=== PATIENT | female | born 1955 | race Caucasian/White ===

== ENCOUNTER 2020-06-09 20:54 | Emergency (ER) | payer MEDICARE ==
[2020-06-09] MEDS ORDERED: AMIODARONE 50 MG/ML 3 ML VIAL IV ONE ×2 (20:55)
[2020-06-09] MEDS ORDERED: DEXTROSE 5% IN WATER 50 ML BAG ONE (20:55)
[2020-06-09] MEDS ORDERED: DEXTROSE 5% IN WATER 100 ML BAG IV ONE (20:55)
[2020-06-09] MEDS ORDERED: ATROPINE SULFATE 0.1 MG/ML 10ML SYRINGE ONE (20:55)
[2020-06-09] MEDS ORDERED: SODIUM BICARB 8.4% 50 ML SYR (1 MEQ/ML) ONE (20:55)
[2020-06-09] MEDS ORDERED: MAGNESIUM SULFATE SYG 4.06 MEQ/ML SYRINGE ONE (20:55)
[2020-06-09] MEDS ORDERED: EPINEPHrine 10 ML SYRINGE (0.1 MG/ML) ONE (20:55)
[2020-06-09] MEDS ORDERED: CALCIUM CHLORIDE 100 MG/ML 10 ML SYRINGE ONE (20:55)
[2020-06-09 21:09] LABS: Anisocytosis Slight; HCT 24.9 % (34.0-46.0); Hypochromasia Marked; MCH 21.2 pg (25.0-35.0); MCHC 25.2 g/dL (31.0-37.0); MCV 84.2 fL (80.0-100.0); Mean Platelet Volume 9.2; Microcytosis Slight; Platelet Count 192 k/uL (150-450); RBC 2.96 m/uL (3.80-5.40); RDW 18.6 % (11.5-15.5); WBC 12.5 k/uL (3.8-10.6)
[2020-06-09] MEDS ORDERED: NOREPINEPHRINE 4 MG in SODIUM CHLORIDE 0.9% 250 ML IV ONE (21:21)
[2020-06-09 21:27] LABS: Glucose,Whole Blood 181 mg/dL (75-99)
[2020-06-09 21:27] LABS: HGB 6.3 gm/dL (11.4-16.0)
[2020-06-09 21:33] LABS: INR 1.1 (<1.2); Partial Thromboplastin Time 37.8 sec (22.0-30.0); Prothrombin Time 11.4 sec (9.0-12.0)
[2020-06-09 21:37] LABS: D-Dimer 26.14 mg/L FEU (<0.60)
--- NOTE | 2020-06-09 21:42 | ED ---
General Adult HPI - General Chief complaint: Cardiac Arrest/CPR Stated complaint: Cardiac Arrest Time Seen by Provider: 06/09/20 21:20 Source: EMS, RN notes reviewed, old records reviewed Mode of arrival: EMS - History of Present Illness Initial comments: 64-year-old female presented has witnessed cardiac arrest. Initial rhythm according to paramedics was ventricular fibrillation. She was intubated by EMS, given amiodarone, defibrillation, and transported to the emergency department. She went into a PEA rhythm during transport, was given multiple doses of epinephrine. At the time of presentation to the emergency department she was in a persistent PEA rhythm. Resuscitative efforts were continued. Please see grey goods tester records for exact details. - Related Data Allergies Allergy/AdvReac Type Severity Reaction Status Date / Time No Known Allergies Allergy Verified 06/09/20 21:19 Review of Systems ROS Statement: Those systems with pertinent positive or pertinent negative responses have been documented in the HPI. ROS Other: All systems not noted in ROS Statement are negative. Past Medical History Past Medical History: Unable to Obtain History of Any Multi-Drug Resistant Organisms: None Reported Past Surgical History: Unable to Obtain Past Psychological History: Unable to Obtain Smoking Status: Unknown if ever smoked Past Alcohol Use History: Unable to Obtain Past Drug Use History: Unable to Obtain General Exam Limitations: altered mental status General appearance: other (Pale,) Head exam: Present: atraumatic, normocephalic Eye exam: Present: other (Pupils 7 mm bilaterally, nonreactive) ENT exam: Present: other (Intubated with Drew airway by EMS) Neck exam: Present: normal inspection Respiratory exam: Present: other (Rhonchorous bilateral breath sounds with BVM) Cardiovascular Exam: Present: other (No spontaneous heart sounds) GI/Abdominal exam: Present: soft. Absent: distended Extremities exam: Present: other (Peripheral cyanosis, no peripheral pulses) Course - Reevaluation(s) Reevaluation #1: 06/09/202149 Case discussed with medical laboratory technologist. Reevaluation #2: 06/09/20 22:[address] Bello covering for Dr. Villanueva. Primary care will sign certificate. Procedures - Intubation Laryngoscope: [place] Size: 3 ET Tube Size: 7 ET Tube Uncuffed: No Tube Secured Depth (cm): 22 Tube Secured Location: lips Tube Placement Confirmation: visualized tube passing through cords, equal breath sounds bilaterally, no breath sounds over epigastrium, confirmation by capnometry Patient Tolerated Procedure: well Intubation Complications: none Additional Comments: Drew airway Transition to endotracheal tube Medical Decision Making - Medical Decision Making Ultimately time of 2132. Please refer to written documentation regarding resuscitative efforts. Patient had initially presented in ventricular fibrillation to EMS 70 minutes prior to arrival. She had spontaneous return of circulation during transport with recurrent loss of perfusing rhythm upon arrival she was in PEA arrest with CPR and resuscitative efforts were continued according to ACLS protocol. She had a brief episode of ventricular fibrillation as well as a brief episode of return of spontaneous circulation with hypertensive but palpable pulse and blood pressure. Ultimately resuscitative efforts were terminated as the patient was in asystole. Total down time was greater than 90 minutes. - Lab Data Result diagrams: 06/09/20 20:58 06/09/20 20:58 Lab Results 06/09/20 06/09/20 06/09/20 Range/Units 20:58 20:58 20:58 WBC 12.5 H (3.8-10.6) k/uL RBC 2.96 L (3.80-5.40) m/uL Hgb 6.3 L* (11.4-16.0) gm/dL Hct 24.9 L (34.0-46.0) % MCV 84.2 (80.0-100.0) fL MCH 21.2 L (25.0-35.0) pg MCHC 25.2 L (31.0-37.0) g/dL RDW 18.6 H (11.5-15.5) % Plt Count 192 (150-450) k/uL MPV 9.2 Neutrophils % (Manual) 17 % Lymphocytes % (Manual) 67 % Monocytes % (Manual) 14 % Eosinophils % (Manual) 1 % Metamyelocytes % 1 % Neutrophils # (Manual) 2.13 (1.3-7.7) k/uL Lymphocytes # (Manual) 8.38 H (1.0-4.8) k/uL Monocytes # (Manual) 1.75 H (0-1.0) k/uL Eosinophils # (Manual) 0.13 (0-0.7) k/uL Metamyelocytes # (Man) 0.13 H (0) k/uL Nucleated RBCs 0 (0-0) /100 WBC Manual Slide Review Performed Large Platelets Present Hypochromasia Marked Poikilocytosis (manual Present Anisocytosis Slight Microcytosis Slight PT 11.4 (9.0-12.0) sec INR 1.1 (<1.2) APTT 37.8 H (22.0-30.0) sec D-Dimer 26.14 H (<0.60) mg/L FEU Sodium 135 L (137-145) mmol/L Potassium 2.7 L* (3.5-5.1) mmol/L Chloride 102 (98-107) mmol/L Carbon Dioxide 11 L (22-30) mmol/L Anion Gap 22 mmol/L BUN 7 (7-17) mg/dL Creatinine 0.96 (0.52-1.04) mg/dL Est GFR (CKD-EPI)AfAm 71 (>60 ml/min/1.73 sqM) Est GFR (CKD-EPI)NonAf 62 (>60 ml/min/1.73 sqM) Glucose 318 H (74-99) mg/dL POC Glucose (mg/dL) (75-99) mg/dL POC Glu Sanitation Laborer ID Calcium 8.1 L (8.4-10.2) mg/dL Total Bilirubin 0.4 (0.2-1.3) mg/dL AST 93 H (14-36) U/L ALT 46 H (4-34) U/L Alkaline Phosphatase 129 H (38-126) U/L Troponin I (0.000-0.034) ng/mL Total Protein 5.6 L (6.3-8.2) g/dL Albumin 2.8 L (3.5-5.0) g/dL 06/09/20 06/09/20 Range/Units 20:58 21:26 WBC (3.8-10.6) k/uL RBC (3.80-5.40) m/uL Hgb (11.4-16.0) gm/dL Hct (34.0-46.0) % MCV (80.0-100.0) fL MCH (25.0-35.0) pg MCHC (31.0-37.0) g/dL RDW (11.5-15.5) % Plt Count (150-450) k/uL MPV Neutrophils % (Manual) % Lymphocytes % (Manual) % Monocytes % (Manual) % Eosinophils % (Manual) % Metamyelocytes % % Neutrophils # (Manual) (1.3-7.7) k/uL Lymphocytes # (Manual) (1.0-4.8) k/uL Monocytes # (Manual) (0-1.0) k/uL Eosinophils # (Manual) (0-0.7) k/uL Metamyelocytes # (Man) (0) k/uL Nucleated RBCs (0-0) /100 WBC Manual Slide Review Large Platelets Hypochromasia Poikilocytosis (manual Anisocytosis Microcytosis PT (9.0-12.0) sec INR (<1.2) APTT (22.0-30.0) sec D-Dimer (<0.60) mg/L FEU Sodium (137-145) mmol/L Potassium (3.5-5.1) mmol/L Chloride (98-107) mmol/L Carbon Dioxide (22-30) mmol/L Anion Gap mmol/L BUN (7-17) mg/dL Creatinine (0.52-1.04) mg/dL Est GFR (CKD-EPI)AfAm (>60 ml/min/1.73 sqM) Est GFR (CKD-EPI)NonAf (>60 ml/min/1.73 sqM) Glucose (74-99) mg/dL POC Glucose (mg/dL) 181 H (75-99) mg/dL POC Glu Sanitation Laborer ID Kelly Hinojosa Calcium (8.4-10.2) mg/dL Total Bilirubin (0.2-1.3) mg/dL AST (14-36) U/L ALT (4-34) U/L Alkaline Phosphatase (38-126) U/L Troponin I 0.361 H* (0.000-0.034) ng/mL Total Protein (6.3-8.2) g/dL Albumin (3.5-5.0) g/dL Critical Care Time Critical Care Time: Yes Total Critical Care Time: 35 Disposition Clinical Impression: Cardiac arrest, Sudden cardiac Disposition: Condition: Undetermined Is patient prescribed a controlled substance at d/c from ED?: No Referrals: Carol Villanueva DO [Primary Care Provider] - 1-2 days Time of Disposition: 21:33 Preliminary Cause of : Cardiac dysrhythmia, cardiac arrest
[2020-06-09 21:50] LABS: Albumin 2.8 g/dL (3.5-5.0); Calcium 8.1 mg/dL (8.4-10.2); Total Bilirubin 0.4 mg/dL (0.2-1.3); Total Protein 5.6 g/dL (6.3-8.2)
[2020-06-09 21:53] LABS: Eosinophils # (M) 0.13 k/uL (0-0.7); Lymphocytes # (M) 8.38 k/uL (1.0-4.8); Metamyelocytes # (M) 0.13 k/uL (0); Metamyelocytes % 1 %; Monocytes # (M) 1.75 k/uL (0-1.0); Neutrophils # (M) 2.13 k/uL (1.3-7.7); Neutrophils % (M) 17 %; Nucleated Red Blood Cells 0 /100 WBC (0-0); Potassium 2.7 mmol/L (3.5-5.1); Total Cells Counted 200
[2020-06-09 21:54] LABS: Large Platelets Present; Poikilocytosis (M) Present
== END 2020-06-09 23:30 | disposition expired ==
LOC: EDBD → SUPCPDRO 20:54 → MERGE 20:54 → EC 20:54
DX: I46.9 Cardiac arrest, cause unspecified (principal)
CPT/HCPCS: 31500; 36415; 80053; 84484; 85025; 85379; 85610; 85730; 93005; 99291